=== PATIENT | male | born 1975 | race Caucasian/White ===

== ENCOUNTER 2019-11-08 14:50 | Emergency (ER) | payer OTHER, SELFPAY ==
[2019-11-08 14:53] VITALS: BP 114/71; PULSE 92; RESP 18; O2SAT 100; BMI 21.7
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
[2019-11-08 15:23] VITALS: BP 114/71; PULSE 92; RESP 18; TEMP 36.9; O2SAT 100
== END 2019-11-08 15:24 | disposition home or self-care (01) ==
PROVIDERS: Emergency Provider Family Medicine; PCP Family Medicine
DX: T24.512A Corrosion of first degree of left thigh, initial encounter (principal); T65.891A Toxic effect of other specified substances, accidental (unintentional), initial encounter; Y92.89 Other specified places as the place of occurrence of the external cause
CPT/HCPCS: 96365; 99281

== ENCOUNTER 2020-01-10 03:49 | Emergency (ER) | payer OTHER, SELFPAY ==
[2020-01-10] VITALS (18 sets, daily range): BP systolic 92–165; BP diastolic 54–141; PULSE 121–164; RESP 14–40; TEMP 35.4–38.4; O2SAT 92–100; BMI 24.3
--- NOTE | 2020-01-10 03:49 | PC.NURSE ---
pt arrived to room 3, cpr in progress.
--- NOTE | 2020-01-10 03:58 | PC.NURSE ---
cspine immobilization at this time
--- NOTE | 2020-01-10 04:07 | PC.NURSE ---
rhythm check=vfib, shocked with 200 J at this time. compressions continued, pea
--- NOTE | 2020-01-10 04:10 | PC.NURSE ---
rhythm check = vfib; shocked using 200J, pea
--- NOTE | 2020-01-10 04:12 | PC.NURSE ---
vtaroel at this time. amiodarone given
--- NOTE | 2020-01-10 04:17 | PC.NURSE ---
rhythm check,vfib. shocked at 200j.continued cpr
--- NOTE | 2020-01-10 04:20 | PC.NURSE ---
vfib at this time.cpr continued
--- NOTE | 2020-01-10 04:23 | PC.NURSE ---
rhythm check. vfib, shock @ 200j. cpr continued
--- NOTE | 2020-01-10 04:24 | PC.NURSE ---
pulse @ 110. EKG performed.
--- NOTE | 2020-01-10 04:24 | ECG_ITS ---
APPROVED REPORT Exam: Resting ECG HR:115 bpm ECG Measurements Heart Rate 115 AXES QRSd 156 QRS 123 QT 360 T -60 QTc 498 <Conclusion> Wide QRS rhythm Right bundle branch block Left posterior fascicular block Bifascicular block T wave abnormality, consider inferolateral ischemia Abnormal ECG Electronically signed by : Ernesto Christie, 01/15/2020 21:24:54
--- NOTE | 2020-01-10 04:26 | PC.NURSE ---
no peripheal or central pulse found. cpr restarted. epi given.
--- NOTE | 2020-01-10 04:29 | PC.NURSE ---
epi given. cpr continued
--- NOTE | 2020-01-10 04:30 | XR_ITS ---
PROCEDURE: XR CHEST PORTABLE CLINICAL INDICATION: post code Code blue, follow-up ET tube placement COMPARISON: No exams were available for comparison FINDINGS: Endotracheal tube and nasogastric tube are in place. The endotracheal tube tip is low at the level of the emma. The tube could be withdrawn approximately 4 x 5 cm. NG tube tip is below the GE junction. There is diffuse consolidation in the right upper lobe and right midlung. The time on the exam is 4:59 a.m.. IMPRESSION: Low position of endotracheal tube. NG tube tip not visible on the film but below the GE junction. Right-sided pneumonia Dictated by: Romel Browning MD 01/10/2020 06:32 Electronically signed by Romel Browning MD in [facility] 01/10/2020 06:32
--- NOTE | 2020-01-10 04:31 | PC.NURSE ---
rosc acheived at this time. family notified. md at bedside.
--- NOTE | 2020-01-10 04:40 | PC.NURSE ---
Graeme Walters in pharmacy paged for bicarb drip dosage. Bicarb 150mEq in 1 liter D5 @ 264mL/hr.
[2020-01-10 04:55] LABS: ABG Base Excess -16.9 mmol/L (-2.4-2.3); ABG HCO3 12.7 mmhg (22.0-26.0); ABG Oxygen Saturation 90 % (90-100); ABG PCO2 41.4 mmhg (35.0-45.0); ABG PO2 76.1 mmhg (80-100)
[2020-01-10 04:59] LABS: ABG PH 7.11 mmol/L (7.35-7.45)
[2020-01-10 05:08] LABS: Basophils # 0.1 K/mm3 (0-0.2); Basophils % 1.3 % (0.1-2.0); Eosinophils # 0.2 K/mm3 (0.0-0.4); Hematocrit 41.9 % (42.0-52.0); Hemoglobin 13.7 g/dL (14.1-18.0); Lymphocytes # 4.9 K/mm3 (0.7-4.5); Lymphocytes % 60.5 % (10-50); Mean Corpuscular HGB Conc 32.7 g/dL (31.8-35.4); Mean Corpuscular Hemoglobin 30.5 pg (27.0-31.2); Mean Corpuscular Volume 93.5 fl (80-94); Mean Platelet Volume 7.7 fl (7.4-10.4); Monocytes # 0.4 K/mm3 (0.1-1.0); Monocytes % 5.1 % (1.7-9.3); Neutrophils # 2.4 K/mm3 (1.8-7.8); Neutrophils % 30.1 % (37.0-80.0); Platelet Count 202 K/mm3 (142-424); Red Blood Count 4.48 M/mm3 (4.60-6.20); Red Cell Distribution Width 14.1 % (11.5-17.5); White Blood Count 8.1 K/mm3 (4.8-10.8)
[2020-01-10 05:10] LABS: Alanine Aminotransferase 152 U/L (12-78); Albumin Level 3.1 g/dl (3.5-5.0); Albumin/Globulin Ratio 1.4 (1.1-1.8); Alkaline Phosphatase 104 U/L (38-126); Anion Gap 17.8 mEq/L (5-15); Aspartate Amino Transferase 143 U/L (17-59); Bilirubin,Total 0.2 mg/dl (0.2-1.3); Blood Urea Nitrogen 11 mg/dl (9-20); Calcium 8.1 mg/dl (8.4-10.2); Carbon Dioxide 19 mmol/L (22.0-30.0); Chloride 99 mmol/L (98-107); Eosinophils % 3 % (0-3); Estimated Glomerular Filt Rate 82 ml/min (>60); GFR (African American) 99 ML/MIN (>60); Globulin 2.2 g/dL (1.3-3.2); Glucose 293 mg/dl (74-100); Lymphocytes % 68 % (10-50); MANUAL DIFFERENTIAL MANUAL DIFFERENTIAL (MANUAL DIFF); Monocytes % 2 % (2-9); Neutrophils % 27 % (42-76); Platelet Estimate Normal; Potassium 3.8 mmoL/L (3.5-5.1); RBC Morphology Normal; Sodium 132 mmol/L (136-145); Total Cells Counted 100; Total Protein,Serum 5.3 g/dl (6.3-8.2); Troponin I 0.05 ng/ml (0.00-0.034)
--- NOTE | 2020-01-10 05:16 | XR_ITS ---
PROCEDURE: XR CHEST PORTABLE CLINICAL INDICATION: et tube Respiratory failure COMPARISON: XR CHEST PORTABLE from 01/10/2020 FINDINGS: Endotracheal tube is in good position at the T4 level 5 cm above the emma. Nasogastric tube is also present in good position with the tube tip in the region of the body of the stomach. Unremarkable cardiovascular structures. There is consolidation in the right upper and right midlung consistent with pneumonia. IMPRESSION: Endotracheal tube in good position. Diffuse right-sided pneumonia Dictated by: Romel Browning MD 01/10/2020 06:27 Electronically signed by Romel Browning MD in [place] 01/10/2020 06:27
--- NOTE | 2020-01-10 05:20 | PC.NURSE ---
RT obtained sputum sample from endotracheal tube and sent sample to lab
[2020-01-10 05:26] LABS: Microscopic, Urine URINE MICROSCOPIC (MICROSCOPIC)
[2020-01-10 05:30] LABS: Appearance,Urine CLEAR (Clear); Bilirubin,Urine Negative (Negative); Blood, Urine 1+ (Negative); Color,Urine YELLOW (Yellow); Glucose,Urine (UA) Negative (Negative); Ketones,Urine Negative (Negative); Leukocyte Esterase,Urine TRACE (Negative); Nitrate,Urine Negative (Negative); PH,Urine 6.5 (5.0-8.5); Protein,Urine 2+ (Negative); Specific Gravity, Urine >= 1.030 (1.005-1.030); Urobilinogen,Urine 0.2 EU/dl (0.2)
--- NOTE | 2020-01-10 05:31 | PC.NURSE ---
call [facility] at this time.
[2020-01-10 05:36] LABS: Acetaminophen < 10 ug/ml (10-30); Salicylate < 1.0 mg/dL (2.0-20.0)
[2020-01-10 05:37] LABS: Ethyl Alcohol < 10 mg/dl (0-10)
--- NOTE | 2020-01-10 05:37 | PC.NURSE ---
call placed to [facility] for possible air flight status check
--- NOTE | 2020-01-10 05:39 | PC.NURSE ---
speaking to dr. berger with cardiology.
[2020-01-10 05:40] LABS: Benzodiazepines Screen,Urine Negative ng/ml (<200)
[2020-01-10 05:41] LABS: Amphetamine/Metha Screen,Urine Negative ng/ml (<1000); WBC,Urine Occasional #/hpf (0-3)
[2020-01-10 05:42] LABS: Amorphous Sediment,Urine Trace /lpf; Bacteria,Urine Trace /lpf; Barbiturates Screen,Urine Negative ng/ml (<200); Cannabinoid Screen,Urine Negative ng/ml (<50)
[2020-01-10 05:43] LABS: Cocaine Screen,Urine Negative ng/ml (<300)
[2020-01-10 05:44] LABS: Methadone Screen,Urine Negative ng/ml (<300); Opiate Screen,Urine Negative ng/ml (<300)
[2020-01-10 05:45] LABS: Phencyclidine Screen,Urine Negative ng/ml (<25)
--- NOTE | 2020-01-10 05:50 | PC.NURSE ---
[facility] declined due to weather. calling [facility] at this time.
--- NOTE | 2020-01-10 05:56 | PC.NURSE ---
[facility] declined flight due to low ceiling and low visibility to out facility
--- NOTE | 2020-01-10 06:03 | HMH.EDCPR ---
ED Disposition Clinical Impression: Cardiac arrest, Acute respiratory failure, Post cardiac operation functional disturbance Disposition: Xfer Short-Term Hosp Condition on Discharge: Critical Instructions: Cardiac Arrest Referrals: Ernesto Davison MD [Primary Care Provider] - - Critical Care Critical Care Time: Yes (120) Attestation: On 01/10/20, the high probability of a clinically significant, sudden or life threatening deterioration of the following system(s) required my full and direct attention, intervention and personal management. The time I documented below is in addition to time spent performing reported procedures but includes the following listed in this critical care notation. Total Critical Care Time: 120 Vital system(s) involved:: Circulatory Failure, Central Nervous System, Metabolic Failure, Respiratory Failure My critical care processes included: Assessment & monitoring of V/S, Initial and Re-exams, Data Review/Interpretation, Coordinating Care, Medication Orders and management, Documentation [facility] Code Documentation - Arrest Information Outside of Hospital The Code Document Section documentation for [id number] Cristóbal Boucher was populated with data that defaulted in from the mirror silverer in the Code Assessment on f_Reg Service Date] to provide within this report, the status and treatment of the patient in the ED during a Code. This documentation will be supplemented with my direct findings within the body of the report. Date Treatment Initiated: 01/10/20 Time Treatment Initiated: 03:30 Treatment Initiated By: EMS Arrest Witnessed: No Estimated Down Time: 15 - Arrest Information in Hospital Date of Arrest: 01/10/20 Time of Arrest: 03:50 Location of Arrest In-house: Emergency Department Other Location of Arrest: Home Type of Arrest In-house: Respiratory In-house Arrest Witnessed: Yes - Unmonitored - ALS Code Inititation ALS Initiated By: EMS ALS Type: ACLS - Patient Condition At Code Start Condition of Patient at Start of Code: Pulseless, Apneic, Unconscious Monitoring Devices: ECG Monitor, Pulse Oximeter, Apnea Monitor, Capnograph - Circulation Initial Cardiac Rhythm: PEA - Oxygenation Oxygen Breathing Status: Assisted Oxygen Delivery Method: Endotracheal Tube FIO2: 100 - Labs Fingerstick Blood Glucose: 82 Specimens collected: Blood, Blood Culture x 2, Urine - Procedures ABG's Drawn: Yes Labs Drawn: Yes - Assisted Ventilation ETT Insertion Time: 04:03 ETT Size: 7 ETT Insertion Site: Oral Endotracheal ETT Position at Lip: 24 ETT Placement Confirmation: Revisualization with Direct Laryngoscopy - Urinary Catheter [place] Date of Insertion: 01/10/20 Time of Insertion: 04:10 Size (Fr): 16 [place] Balloon Amount: 10 - Gastric Tube Right Nare Tube Type: Hirsch Suction: Continuous Gastric Content Description: Blood Tinged - Code End Time Code Ended: 04:31 Patient Successfully Resuscitated: Yes Reason Code Ended: Survived - Return of Circulation > 20 minutes Family Members Present During Code: Yes (in conference) Names of All Individuals Present at Code: jesús licona; philliprn;ermarn; buckyrn; kenia epstein-p - Mental Status Eye Opening: None Motor Response: None - Pupils Left Pupil Size: 5 Pupil Reaction: Sluggish Right Pupil Size: 7 Pupil Reaction: Unreactive Medical Decision Making - Medical Records Medical records reviewed: Yes: I reviewed the patient's medical records. - Parveen Inquiry Pt receiving controlled substance: No Vital Signs: 01/10/20 04:31 01/10/20 04:45 01/10/20 05:05 Temperature 95.7 F L Temperature Source Rectal Pulse Rate [Right Brachial] 129 H 121 H Respiratory Rate 14 22 Blood Pressure [Right Arm] 165/141 H 101/72 L Blood Pressure Mean [Right Arm] 149 81 Blood Pressure Source [Right Arm] Automatic Cuff Blood Pressure Position [Right Arm] Supine Sitting 02 Sat by Pulse Oximetry 95 98 92
[2020-01-10 06:38] LABS: Coronavirus 19 IgG Antibody Negative (Negative); Coronavirus 19 IgM Antibody Negative (Negative)
--- NOTE | 2020-01-10 07:10 | PC.NURSE ---
Pt assessed and noted to have unequal pupils and sluggish reaction. Tolerated dopamine well @ 8, sodium bicarb continues to infuse. Pt has no response to painful stimuli, GCS of 3. Lung sounds diminished with rhonchi. Family at bedside. VSS. [place] draining clear yellow urine. NG noted to have bloody gastric contents, to intermittent low wall suction. Pt noted to be very tachypnea, MD notified. Family at bedside. Will continue to monitor.
--- NOTE | 2020-01-10 07:20 | PC.NURSE ---
report given to pavithra rn.
[2020-01-10 07:40] LABS: ABG HCO3 14.8 mmhg (22.0-26.0); ABG Oxygen Saturation 99 % (90-100); ABG PCO2 32.6 mmhg (35.0-45.0); ABG PH 7.28 mmol/L (7.35-7.45); ABG PO2 289.4 mmhg (80-100); ABG TCO2 15.8 mmhg (23-27)
--- NOTE | 2020-01-10 07:40 | PC.NURSE ---
aware of chest xray results no new orders noted
[2020-01-10 07:42] LABS: Oxygen 100 %; Tidal Volume 400
[2020-01-10 07:43] LABS: Allen's Test ACCEPTABLE; PEEP 6; Pressure Support 10; Source L RADIAL; Vent Rate 12
--- NOTE | 2020-01-10 07:50 | PC.NURSE ---
Notified MD of BP stated to decrease dopamine to 2
--- NOTE | 2020-01-10 07:51 | PC.NURSE ---
calling [facility] to check if they are flying
--- NOTE | 2020-01-10 07:55 | PC.NURSE ---
Assessing pt at this time, notified to have seizure like activity, notified MD, verbal order of 2mg Ativan given
--- NOTE | 2020-01-10 07:55 | PC.NURSE ---
[facility] accepts flight, 25 min eta
--- NOTE | 2020-01-10 08:08 | PC.NURSE ---
Addendum entered by Winifred Potts RN 01/10/20 12:29: verbal order to D/C dopamine Original Note: Attempted to get a manual BP on pt, manual BP with a doppler 60/palp, notified stated to initiate vasopressor, called pharmacy to mix drip.
--- NOTE | 2020-01-10 08:09 | XR_ITS ---
PROCEDURE: XR CHEST PORTABLE CLINICAL HISTORY: intubation COMPARISON: XR CHEST PORTABLE from 01/10/2020 XR CHEST PORTABLE from 01/10/2020 FINDINGS: Endotracheal tube is again seen in a good position about 3.5 centimeter above the emma. NG tube is also present extending below the diaphragm into the abdomen and off the field of view. An electronic battery pack is seen over the spine at gastroesophageal level. The cardiomediastinal silhouette and pulmonary vascularity are within normal limits. Redemonstrated mixed interstitial/airspace patchy hazy parenchymal opacities in the right lung, compatible with pneumonia. There is left basilar mild subsegmental atelectasis. No substantial pleural effusion or pneumothorax is seen. IMPRESSION: 1. Endotracheal tube remain in good position. 2. Again noted diffuse/patchy right-sided predominantly interstitial pneumonia with possible minimal improvement. Dictated by: Ale Humphreys 01/10/2020 08:44 Electronically signed by Ale Humphreys in [place] 01/10/2020 08:44
--- NOTE | 2020-01-10 08:09 | PC.NURSE ---
[facility] have lifted off.
--- NOTE | 2020-01-10 08:10 | PC.NURSE ---
Pt noted to have a stable pressure after mixing of vasopressor, stated she wished to hold drip for now, drip at bedside on standby.
--- NOTE | 2020-01-10 08:12 | PC.NURSE ---
Dr Baird notified of sodium bicarb drip being finished, stated she did not wish to continue infusion.
--- NOTE | 2020-01-10 08:16 | PC.NURSE ---
Pt noted to show vtach on the monitor, pulse check and found to be pulseless vtach, CPR initiated, shockd at 200j once and pt converted to sinus tach.
--- NOTE | 2020-01-10 08:21 | PC.NURSE ---
Dr Baird at bedside doing US at this time.
--- NOTE | 2020-01-10 08:35 | PC.NURSE ---
Report given to [facility]
[2020-02-13 11:52] LABS: POC Glucose,Bedside 82 (70-110)
== END 2020-01-10 08:35 | disposition short-term general hospital (02) ==
PROVIDERS: Emergency Provider Family Medicine; PCP Family Medicine
DX: I46.9 Cardiac arrest, cause unspecified (principal); J96.00 Acute respiratory failure, unspecified whether with hypoxia or hypercapnia; F17.210 Nicotine dependence, cigarettes, uncomplicated; I10 Essential (primary) hypertension; R73.9 Hyperglycemia, unspecified; Z01.84 Encounter for antibody response examination
CPT/HCPCS: 31500; 71045; 80053; 80305; 80329; 81001; 82803; 82962; 84484; 85007; 85025; 86328; 87070; 87205; 93005; 96365; 96367; 96375; 96376; 99285; J0282; J1953; J2310